=== PATIENT | male | born 1945 | race Caucasian/White ===

== ENCOUNTER 2020-05-18 17:35 | Outpatient (REF) | payer MEDICARE, SELFPAY | END 2020-05-18 17:55 | LOC: NCHCN 17:35 | PROVIDERS: PCP Internal Medicine; Visit Provider Physician Assistant | DX: R31.9 Hematuria, unspecified (principal) | CPT/HCPCS: 87077; 87086; 87186 ==

== ENCOUNTER 2022-12-24 18:24 | Outpatient (REF) | payer MEDICARE, BC, SELFPAY ==
[2022-12-24 19:13] LABS: Bilirubin Negative (Negative); Blood Moderate (Negative); Clarity Cloudy (Clear); Glucose Negative (Negative); Ketones Negative (Negative); Leukocyte Esterase Large (Negative); Nitrite Negative (Negative); Specific Gravity 1.025 (1.005-1.025); Urobilinogen 0.2 mg/dL (Up to 0.2); pH 5.5 (5-8)
[2022-12-24 19:21] LABS: Abs Immature Grans 0.05 10^3/uL (0.0-0.06); Absolute Basophil Count 0.06 10^3/uL (0.0-0.2); Absolute Lymphocyte Count 2.09 10^3/uL (1.2-3.4); Absolute Monocyte Count 0.58 10^3/uL (0.1-0.8); Absolute Neutrophil Count 7.19 10^3/uL (1.2-6.7); Basophils % 0.6; HCT 41.5 % (40.0-50.0); HGB 14.7 g/dL (13.5-17.5); Immature Grans % 0.5; Lymphocytes % 20.8; MCH 30.9 pg (27.0-33.0); MCHC 35.4 % (32.0-36.0); MCV 87 fL (80-95); MPV 10.5 fL (8.0-11.0); Monocytes % 5.8; Neutrophils % 71.3; Platelet Count 122 10^3/uL (130-400); RBC 4.75 10^6/uL (4.36-5.78); RDW 13.5 % (11.8-14.1); RDW-SD 42.9 fL; WBC 10.07 10^3/uL (4.4-10.8)
[2022-12-24 19:26] LABS: WBC >50 HPF (0-5)
[2022-12-24 19:27] LABS: Bacteria Many HPF (Negative); C & S Indicated? C&S Done As Ordered
== END 2022-12-24 18:25 | disposition home or self-care (01) ==
LOC: NCHCN 18:24
PROVIDERS: PCP Internal Medicine; Visit Provider Nurse Practitioner Family
DX: C67.9 Malignant neoplasm of bladder, unspecified (principal); R35.0 Frequency of micturition; R30.0 Dysuria
CPT/HCPCS: 87077; 81003; 81015; 85025; 87086; 87186

== ENCOUNTER 2025-03-17 18:55 | Outpatient (REF) | payer MEDICARE, BC, SELFPAY ==
[2025-03-17 19:03] LABS: HCT 41.6 % (40.0-50.0); HGB 14.8 g/dL (13.5-17.5); MCH 32.1 pg (27.0-33.0); MCHC 35.6 % (32.0-36.0); MCV 90 fL (80-95); MPV 9.9 fL (8.0-11.0); Platelet Count 144 10^3/uL (130-400); RBC 4.61 10^6/uL (4.36-5.78); RDW 12.3 % (11.8-14.1); RDW-SD 40.4 fL; WBC 7.29 10^3/uL (4.4-10.8)
[2025-03-17 19:05] LABS: ESR 23 mm/hr (0-20)
[2025-03-17 19:24] LABS: ALT 31 U/L (16-63); AST 27 U/L (15-37); Albumin 3.8 g/dL (3.4-5.0); Alkaline Phosphatase 101 U/L (46-116); Anion Gap 12.1 mmol/L (3-11); BUN 17 mg/dL (7-18); Bilirubin, Total 1.0 mg/dL (0.2-1.0); CO2 22.9 mmol/L (21.0-32.0); Calcium 9.3 mg/dL (8.5-10.1); Chloride 105 mmol/L (98-107); Estimated GFR 61.52 (mL/min/1.73m2); Glucose 144 mg/dL (74-106); NT-proBNP 427 pg/mL (<300); Potassium 4.5 mmol/L (3.5-5.1); Sodium 140 mmol/L (136-145); TSH (W/Ref FT4) 0.90 uIU/mL (0.36-3.74); Total Protein 7.5 g/dL (6.4-8.2)
[2025-03-18 18:18] LABS: Total Protein 7.5 g/dL (6.3-8.2)
[2025-03-18 18:20] LABS: CRP, High Sensitivity 1.56 mg/L (See Note)
[2025-03-21 16:12] LABS: Albumin 53.1 % (55.8-66.1); Albumin g/dL 4.0 g/dL (3.6-5.2); Alpha 1 g/dL 0.30 g/dL (0.15-0.40); Alpha 2 g/dL 0.80 g/dL (0.50-1.00); Beta g/dL 1.40 g/dL (0.60-1.20); Gamma g/dL 1.00 g/dL (0.60-1.60)
[2025-03-22 13:42] LABS: B. miyamotoi PCR Negative (Negative); Babesia divergens/MO-1 Negative (Negative); Ehrlichia muris eauclairensis Negative (Negative)
== END 2025-03-17 18:56 | disposition home or self-care (01) ==
LOC: NCHCN 18:55
PROVIDERS: PCP Internal Medicine; Visit Provider Internal Medicine
DX: R53.83 Other fatigue (principal)
CPT/HCPCS: 80053; 85027; 85652; 86141; 87798; 83880; 84165; 84443; 86320

== ENCOUNTER 2025-03-24 10:11 | Outpatient (REF) | payer MEDICARE, BC, SELFPAY ==
[2025-04-05 23:28] LABS: Testosterone, Free 43.5 pg/mL (30.0-135.0)
== END 2025-03-24 10:12 | disposition home or self-care (01) ==
LOC: NCHCN 10:11
PROVIDERS: PCP Internal Medicine; Visit Provider Internal Medicine
DX: R53.83 Other fatigue (principal)
CPT/HCPCS: 84402; 84403